=== PATIENT | male | born 1985 | race Caucasian/White ===

== ENCOUNTER 2017-12-22 12:41 | Emergency (ER) | payer MEDICAID ==
[~2017-12-22 12:41] MED LIST: BACT800T5 PO; CLIN150 PO; LORTA10 PO; XANA0.5T PO
[2017-12-22 12:44] VITALS: BP 162/78; PULSE 75; RESP 16; TEMP 98.7; O2SAT 99
[2017-12-22] MEDS ORDERED: ADDE20 PO (13:32)
[2017-12-22] MEDS ORDERED: METH40TA PO (13:32)
[2017-12-22] MEDS ORDERED: ALPR0.5T3 PO (13:32)
[2017-12-22] MEDS ORDERED: CLON0.1T PO (14:22)
[2017-12-22] MEDS ORDERED: ZOFR4TAB PO (14:22)
[2017-12-22] MEDS ORDERED: GABA100C4 PO (14:22)
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
== END 2017-12-22 14:42 | disposition home or self-care (01) ==
LOC: NEPD 12:41
DX: F11.23 Opioid dependence with withdrawal (principal); F90.9 Attention-deficit hyperactivity disorder, unspecified type; F41.9 Anxiety disorder, unspecified; G89.29 Other chronic pain; F17.210 Nicotine dependence, cigarettes, uncomplicated
CPT/HCPCS: 99283